=== PATIENT | male | born 1970 | race Caucasian/White ===

== ENCOUNTER 2016-12-18 14:46 | Emergency (ER) | payer BC ==
[2016-12-18 15:00] VITALS: O2SAT 96
--- NOTE | 2016-12-18 15:20 | ERPHSYRPT ---
- History of Present Illness Time Seen by Provider: 12/18/16 15:15 Source: patient Exam Limitations: no limitations Patient Subjective Stated Complaint: PT STATES HE HAD SURGERY TODAY ON RIGHT FOOT FOR A TENDON REPAIR AND WHEN HE GOT HOME AFTER SURGERY HE NOTICED BLEEDING COMING FROM SURGERY SITE. Triage Nursing Assessment: PT PINK, WARM, DRY. DRESSING SATURATED WITH BLOOD. BLOOD SEEPING FROM SUTURE SITE. PEDAL PULSE STRONG. SWELLING AND BRUISING NOTED. Physician History: 46 y/o male who had peroneal brevis repair done today comes to the ER with complaints of blood coming from the wound site. Pt has no pain and upon arrival , patient has no bleeding. Pt admits to not elevating the leg enough. Pt has no bleeding issues and is not on any blood thinners. Method of Injury: unknown Occurred: just prior to arrival Severity of Pain-Max: none Severity of Pain-Current: none Modifying Factors: Improves With: nothing Hx Tetanus, Diphtheria Vaccination/Date Given: Yes Hx Influenza Vaccination/Date Given: Yes Hx Pneumococcal Vaccination/Date Given: No Immunizations Up to Date: Yes - Review of Systems Constitutional: No Fever, No Chills Eyes: No Symptoms Ears, Nose, & Throat: No Symptoms Respiratory: No Cough, No Dyspnea Cardiac: No Chest Pain, No Edema, No Syncope Abdominal/Gastrointestinal: No Abdominal Pain, No Nausea, No Vomiting, No Diarrhea Genitourinary Symptoms: No Dysuria Musculoskeletal: No Arthralgias, No Back Pain, No Neck Pain, No Joint Redness Skin: No Rash Neurological: No Dizziness, No Focal Weakness, No Sensory Changes Psychological: No Symptoms Endocrine: No Symptoms All Other Systems: Reviewed and Negative - Past Medical History Pertinent Past Medical History: No - Past Surgical History Past Surgical History: Yes Other Surgical History: FOOT SURGERY - Social History Smoking Status: Current some day smoker Exposure to second hand smoke: No Drug Use: none Patient Lives Alone: Yes - Nursing Vital Signs Nursing Vital Signs: Initial Vital Signs Temperature 98.3 F 12/18/16 14:48 Pulse Rate 82 12/18/16 14:48 Respiratory Rate 18 12/18/16 14:48 Blood Pressure 128/67 12/18/16 14:48 O2 Sat by Pulse Oximetry 96 12/18/16 14:48 Pain Scale Pain Intensity 0 - Physical Exam General Appearance: alert Eyes, Ears, Nose, Throat Exam: moist mucous membranes Neck Exam: non-tender, supple Cardiovascular/Respiratory Exam: chest non-tender, normal breath sounds, regular rate/rhythm, no respiratory distress Gastrointestinal/Abdominal Exam: non-tender, guarding Back Exam: normal inspection, No vertebral tenderness Ankle Exam: right ankle: non-tender, normal inspection, normal range of motion, no evidence of injury Neuro/Tendon Exam: normal sensation, normal motor functions Mental Status Exam: alert, oriented x 3, cooperative Skin Exam: normal color, warm, dry SpO2 Interpretation: normal SpO2: 96 Oxygen Delivery: Room Air - Progress Progress: improved Progress Note: 12/18/16 15:18 Pt has no bleeding. Pt will be wrapped in dressings and will have an chuy wrap with surgical milner. I spoke to Dr Malone who the patient will F/U with. - Departure Time of Disposition: 15:19 Departure Disposition: Home Clinical Impression: S/P tendon repair Condition: Stable Critical Care Time: No Referrals: FUNMI LEONARD NP [Primary Care Provider] - Instructions: Tendon Repair Additional Instructions: Follow up with Dr. Malone in the next several days.
[2016-12-18 15:44] VITALS: BP 134/83; PULSE 95
== END 2016-12-18 15:44 | disposition home or self-care (01) ==
LOC: ED 14:46
DX: T81.31XA Disruption of external operation (surgical) wound, not elsewhere classified, initial encounter (principal)
CPT/HCPCS: 99283; 99284; L4386

== ENCOUNTER 2020-07-19 06:11 | Day surgery (SDC) | payer BC ==
[2020-07-19] MEDS ORDERED: Lactated Ringers 1,000 ML IV SCH (07:00)
[2020-07-19] MEDS ORDERED: Versed 2 MG/2 ML Injection ONE (07:32)
[2020-07-19] MEDS ORDERED: DIPRIVAN 200 MG/20 ML IV ONE (07:32)
[2020-07-19 08:48] VITALS: BP 133/66; PULSE 79; O2SAT 95
--- NOTE | 2020-07-19 10:28 | OP ---
SURGERY DATE/TIME: 07/19/2020 0728 PREOPERATIVE DIAGNOSIS: History of colon polyps. POSTOPERATIVE DIAGNOSIS: Normal colon. PROCEDURE: Colonoscopy. SURGEON: Dr. Wild. ANESTHESIA: MAC. Medications given by anesthesia department. HISTORY: The patient is a 50 year-old white male who reports he had polyps removed several years ago. The patient is felt the need to have endoscopic evaluation at age 50 especially in a patient with history of previous polyps. The patient was appraised of the risks of the procedure including the risk of perforation, phlebitis, untoward reaction to medication, bleeding and missed lesions. The patient verbalized his understanding and desired to have the procedure performed. DESCRIPTION OF PROCEDURE: The patient was given the medications by the anesthesia department. He had continuous pulse oximetry, ECG monitoring, intermittent blood pressure monitoring and tidal CO2 monitoring during the examination. He was placed in the left lateral decubitus position. A digital rectal examination was performed and revealed normal anal sphincter tone, no masses and normal prostate. The flexible Olympus pediatric colonoscope was used to intubate the rectum. A view of the colon was developed sequentially to the cecum. Upon insertion and withdrawal, including a retroflex view in the rectum, no mucosal lesions were encountered. The scope was removed from the patient who tolerated the procedure well and was sent back to OP recovery in good condition. The prep was noted to be good.
== END 2020-07-19 08:38 | disposition home or self-care (01) ==
LOC: SDC 06:11
PROVIDERS: ATTEND Family Medicine
DX: Z09 Encounter for follow-up examination after completed treatment for conditions other than malignant neoplasm (principal); Z86.010 Personal history of colon polyps
CPT/HCPCS: J2250; J2704

== ENCOUNTER 2022-08-15 22:57 | Emergency (ER) | payer BC ==
[2022-08-15] MEDS ORDERED: TORAdol 30 mg Injection IV ONE (23:04)
[2022-08-15] MEDS ORDERED: Zofran 4 MG/2 ML VIAL IV ONE (23:04)
[2022-08-15] MEDS ORDERED: MORPHINE SULFATE 2 MG INJ IV ONE (23:04)
[2022-08-15] MEDS ORDERED: Sodium Chloride 0.9% 1000 ML 1,000 ML IV STA (23:04)
--- NOTE | 2022-08-15 23:07 | ERPHSYRPT ---
- History of Present Illness Time Seen by Provider: 08/15/22 23:07 Historian: patient Exam Limitations: no limitations Physician History: Pt c/o flank pain, left. Severe, radiates to groin. Previous episode of nephrolithiasis, 9 episodes in the past, required intervention 4 times No fever. + N, no V. No dysuria. Denies hematuria. Timing/Duration: today Activities at Onset: rest Quality: burning, sharpness Abdominal Pain Onset Location: LLQ, flank Pain Radiation: LLQ, groin Severity of Pain-Max: severe Severity of Pain-Current: severe Modifying Factors: Improves With: nothing. Worsens With: movement, urinating Associated Symptoms: back, nausea, No chest pain, No fever/chills, No testicular pain, No vomiting Previous symptoms: same symptoms as today Allergies/Adverse Reactions: Iodinated Contrast Media [Iodinated Contrast- Oral and IV Dye] Allergy (Verified 08/15/22 23:17) silk Allergy (Verified 08/15/22 23:17) silk stitches - infection Home Medications: Famotidine 40 mg PO HS 12/18/16 [History] Pantoprazole Sodium [Protonix] 40 mg PO HS 12/18/16 [History] Simvastatin 10 mg [Zocor 10MG] 10 mg PO QPM 07/03/20 [History] Hx Tetanus, Diphtheria Vaccination/Date Given: Yes Hx Influenza Vaccination/Date Given: Yes Hx Pneumococcal Vaccination/Date Given: No - Review of Systems Constitutional: No Symptoms Eyes: No Symptoms Ears, Nose, & Throat: No Symptoms Respiratory: No Symptoms Cardiac: No Symptoms Abdominal/Gastrointestinal: Abdominal Pain, Nausea, No Vomiting, No Diarrhea Genitourinary Symptoms: No Dysuria, No Hematuria Musculoskeletal: No Symptoms Skin: No Symptoms Neurological: No Symptoms Psychological: No Symptoms Endocrine: No Symptoms Hematologic/Lymphatic: No Symptoms Immunological/Allergic: No Symptoms - Past Medical History Pertinent Past Medical History: Yes Neurological History: No Pertinent History ENT History: No Pertinent History Cardiac History: No Pertinent History Respiratory History: No Pertinent History Endocrine Medical History: No Pertinent History Musculoskeletal History: No Pertinent History GI Medical History: GERD History: Other Psycho-Social History: No Pertinent History Male Reproductive Disorders: No Pertinent History Other Medical History: kidney stones, hx of colon polyps - Past Surgical History Past Surgical History: Yes Neuro Surgical History: No Pertinent History Cardiac: No Pertinent History Respiratory: No Pertinent History Gastrointestinal: No Pertinent History Genitourinary: Other Musculoskeletal: Other Male Surgical History: No Pertinent History Other Surgical History: lithotripsy, tendon repair ankle, tendon release left wrist - Social History Smoking Status: Never smoker Exposure to second hand smoke: No Drug Use: none Patient Lives Alone: Yes - Nursing Vital Signs Nursing Vital Signs: Initial Vital Signs Temperature 97.2 F 08/15/22 23:00 Pulse Rate 62 08/15/22 23:00 Respiratory Rate 18 08/15/22 23:00 Blood Pressure 154/101 08/15/22 23:00 O2 Sat by Pulse Oximetry 98 08/15/22 23:00 Pain Scale Pain Intensity [] 10 Pain Intensity 8 - Physical Exam General Appearance: mild distress Eye Exam: eyes nml inspection Ears, Nose, Throat Exam: normal ENT inspection Neck Exam: normal inspection Respiratory Exam: normal breath sounds Cardiovascular Exam: regular rate/rhythm Gastrointestinal/Abdomen Exam: soft, normal bowel sounds, tenderness (LLQ), No guarding, No rebound Back Exam: CVA tenderness (left) Extremity Exam: normal inspection Neurologic Exam: alert, oriented x 3, cooperative, normal mood/affect Skin Exam: normal color SpO2 Interpretation: normal SpO2: 98 O2 Delivery: Room Air - Course Nursing assessment & vital signs reviewed: Yes - CT Exams Abdomen/Pelvis CT Interpretation: Tele-radiologist Report, Other (gallstones, 4.9m obstructing left ureteral calculus w/ left hydroureter and hydronephrosis) Ordered Tests: Active Orders 24 hr Category Date Time Status EKG-ER Only STAT Care 08/15/22 23:04 Active IV Insertion STAT Care 08/15/22 23:04 Active ABDOMEN AND PELVIS W/0 CONTRAS [CT] Stat Exams 08/15/22 23:05 Taken CBC W DIFF Stat Lab 08/15/22 23:00 Completed CMP Stat Lab 08/15/22 23:00 Completed LIPASE Stat Lab 08/15/22 23:00 Completed Lactic Acid Stat Lab 08/15/22 23:04 Ordered TROPONIN Q4H Lab 08/15/22 23:00 Completed TROPONIN Q4H Lab 08/16/22 03:15 Ordered TROPONIN Q4H Lab 08/16/22 07:15 Ordered UA W/RFX UR CULTURE Stat Lab 08/15/22 23:10 Completed Medication Summary Generic Name Dose Route Start Last Admin Trade Name Rebecca PRN Reason Stop Dose Admin Ketorolac Tromethamine 10 mg 08/16/22 00:30 08/16/22 00:33 Ketorolac Tromethamine 10 Mg Tablet PO 08/21/22 00:29 10 mg Q4H OLYA Administration Ketorolac Tromethamine 10 mg 08/16/22 00:45 Ketorolac Tromethamine 10 Mg Tablet PO 08/21/22 00:44 Q4H OLYA Tamsulosin HCl 0.4 mg 08/16/22 10:00 08/15/22 23:23 Tamsulosin Hcl 0.4 Mg Cap PO 09/15/22 09:59 0.4 mg DAILY OLYA Administration Discontinued Medications Generic Name Dose Route Start Last Admin Trade Name Rebecca PRN Reason Stop Dose Admin Sodium Chloride 1,000 mls @ 999 mls/hr 08/15/22 23:04 08/15/22 23:20 Sodium Chloride 0.9% 1000 Ml IV 08/16/22 00:04 999 mls/hr .Q1H1M STA Administration Sodium Chloride Confirm 08/15/22 23:11 Sodium Chloride 0.9% 1000 Ml Administered 08/15/22 23:12 Dose 1,000 mls @ ud .ROUTE .STK-MED ONE Ketorolac Tromethamine 30 mg 08/15/22 23:04 08/15/22 23:20 Ketorolac Tromethamine 30 Mg/Ml Inj IV 08/15/22 23:05 30 mg STAT ONE Administration Ketorolac Tromethamine Confirm 08/15/22 23:11 Ketorolac Tromethamine 30 Mg/Ml Inj Administered 08/15/22 23:12 Dose 30 mg .ROUTE .STK-MED ONE Morphine Sulfate 2 mg 08/15/22 23:04 08/16/22 00:32 Morphine Sulfate 2 Mg/Ml Inj IV 08/15/22 23:05 2 mg STAT ONE Administration Morphine Sulfate Confirm 08/16/22 00:31 Morphine Sulfate 2 Mg/Ml Inj Administered 08/16/22 00:32 Dose 2 mg .ROUTE .STK-MED ONE Ondansetron HCl 4 mg 08/15/22 23:04 08/15/22 23:20 Ondansetron Hcl 4 Mg/2 Ml Vial IV 08/15/22 23:05 4 mg STAT ONE Administration Ondansetron HCl Confirm 08/15/22 23:11 Ondansetron Hcl 4 Mg/2 Ml Vial Administered 08/15/22 23:12 Dose 4 mg .ROUTE .STK-MED ONE Lab/Rad Data: Laboratory Result Diagrams 08/15/22 23:00 08/15/22 23:00 Laboratory Results 08/15/22 08/15/22 08/15/22 Range/Units 23:10 23:00 23:00 WBC (4.0-10.5) x10^3/uL RBC (4.1-5.6) x10^6/uL Hgb (12.5-18.0) g/dL Hct (42-50) % MCV (78-100) fL MCH (26-32) pg MCHC (32-36) g/dL RDW (11.5-14.0) % Plt Count (150-450) x10^3/uL MPV (7.5-11.0) fL Gran % (36.0-66.0) % Immature Gran % (Auto) (0.00-0.4) % Nucleat RBC Rel Count (0.00-0.1) % Eos # (Auto) (0-0.5) x10^3/uL Immature Gran # (Auto) (0.00-0.03) x10^3u/L Absolute Lymphs (auto) (1.0-4.6) x10^3/uL Absolute Monos (auto) (0.0-1.3) x10^3/uL Absolute Nucleated RBC (0.00-0.01) x10^3u/L Lymphocytes % (24.0-44.0) % Monocytes % (0.0-12.0) % Eosinophils % (0.00-5.0) % Basophils % (0.0-0.4) % Absolute Granulocytes (1.4-6.9) x10^3/uL Basophils # (0-0.4) x10^3/uL Sodium 141 (137-145) mmol/L Potassium 3.9 (3.5-5.1) mmol/L Chloride 103 (98-107) mmol/L Carbon Dioxide 26 (22-30) mmol/L Anion Gap 15.3 H (5-15) MEQ/L BUN 15 (9-20) mg/dL Creatinine 0.95 (0.66-1.25) mg/dL Estimated GFR > 60.0 ML/MIN Glucose 123 H (74-106) mg/dL Calcium 9.0 (8.4-10.2) mg/dL Total Bilirubin 0.60 (0.2-1.3) mg/dL AST 29 (17-59) U/L ALT 38 (0-50) U/L Alkaline Phosphatase 95 (38-126) U/L Troponin I < 0.012 (0.000-0.034) ng/mL Serum Total Protein 7.3 (6.3-8.2) g/dL Albumin 4.4 (3.5-5.0) g/dL Lipase 76 (23-300) U/L Urine Color Yellow (Yellow) Urine Appearance Clear (Clear) Urine pH 5.5 (4.6-8.0) Ur Specific [place] 1.025 (1.005-1.030) Urine Protein Negative (Negative) Urine Glucose (UA) Negative (Negative) mg/dL Urine Ketones Negative (Negative) Urine Blood Large A (Negative) Urine Nitrite Negative (Negative) Urine Bilirubin Negative (Negative) Urine Urobilinogen 1.0 A (0.2) mg/dL Ur Leukocyte Esterase Negative (Negative) U Hyaline Cast (Auto) NONE SEEN (0-2) /LPF Urine Microscopic RBC >100 A (0-5) /HPF Urine Microscopic WBC 0-2 (0-5) /HPF Ur Epithelial Cells None Seen (None Seen) /HPF Urine Bacteria None Seen (None Seen) /HPF Urine Culture Reflexed NO (NO) 08/15/22 Range/Units 23:00 WBC 11.1 H (4.0-10.5) x10^3/uL RBC 5.52 (4.1-5.6) x10^6/uL Hgb 16.3 (12.5-18.0) g/dL Hct 49.8 (42-50) % MCV 90.2 (78-100) fL MCH 29.5 (26-32) pg MCHC 32.7 (32-36) g/dL RDW 12.9 (11.5-14.0) % Plt Count 392 (150-450) x10^3/uL MPV 10.1 (7.5-11.0) fL Gran % 57.1 (36.0-66.0) % Immature Gran % (Auto) 0.4 (0.00-0.4) % Nucleat RBC Rel Count 0.0 (0.00-0.1) % Eos # (Auto) 0.25 (0-0.5) x10^3/uL Immature Gran # (Auto) 0.04 H (0.00-0.03) x10^3u/L Absolute Lymphs (auto) 3.18 (1.0-4.6) x10^3/uL Absolute Monos (auto) 1.16 (0.0-1.3) x10^3/uL Absolute Nucleated RBC 0.00 (0.00-0.01) x10^3u/L Lymphocytes % 28.8 (24.0-44.0) % Monocytes % 10.5 (0.0-12.0) % Eosinophils % 2.3 (0.00-5.0) % Basophils % 0.9 (0.0-0.4) % Absolute Granulocytes 6.33 (1.4-6.9) x10^3/uL Basophils # 0.10 (0-0.4) x10^3/uL Sodium (137-145) mmol/L Potassium (3.5-5.1) mmol/L Chloride (98-107) mmol/L Carbon Dioxide (22-30) mmol/L Anion Gap (5-15) MEQ/L BUN (9-20) mg/dL Creatinine (0.66-1.25) mg/dL Estimated GFR ML/MIN Glucose (74-106) mg/dL Calcium (8.4-10.2) mg/dL Total Bilirubin (0.2-1.3) mg/dL AST (17-59) U/L ALT (0-50) U/L Alkaline Phosphatase (38-126) U/L Troponin I (0.000-0.034) ng/mL Serum Total Protein (6.3-8.2) g/dL Albumin (3.5-5.0) g/dL Lipase (23-300) U/L Urine Color (Yellow) Urine Appearance (Clear) Urine pH (4.6-8.0) Ur Specific [place] (1.005-1.030) Urine Protein (Negative) Urine Glucose (UA) (Negative) mg/dL Urine Ketones (Negative) Urine Blood (Negative) Urine Nitrite (Negative) Urine Bilirubin (Negative) Urine Urobilinogen (0.2) mg/dL Ur Leukocyte Esterase (Negative) U Hyaline Cast (Auto) (0-2) /LPF Urine Microscopic RBC (0-5) /HPF Urine Microscopic WBC (0-5) /HPF Ur Epithelial Cells (None Seen) /HPF Urine Bacteria (None Seen) /HPF Urine Culture Reflexed (NO) - Progress Progress: pain not gone completely Progress Note: 08/16/22 00:26 Patient has <5mm obstructing left ureteral stone that should pass w/o intervention. Patient will be given Toradol, [place], Flomax and Zofran at d/c. Increase fluid intake and f/u w/ urologist on Wednesday. Counseled pt/family regarding: lab results, diagnosis, need for follow-up, rad results Medical Desision Making - Diagnostic Testing Diagnostic test were ordered, analyzed, and reviewed by me: Yes Radiological Interpretation: Reviewed by me, Teleradiologist Report - Risk of complications The pt has a mod risk of morbidity or mortality based on: Need for prescription drug management - Departure Departure Disposition: Home Clinical Impression: Ureteral stone with hydronephrosis, Nausea Condition: Good Critical Care Time: No Referrals: FUNMI LEONARD NP [Primary Care Provider] - Follow up/PCP as directed JAIRO DURAN DO [NON-STAFF PHY W/O PRIVILEGES] - Follow up/PCP as directed Instructions: Kidney Stones (DC) Prescriptions: Tamsulosin HCl 0.4 mg [Flomax 0.4 MG] 0.4 mg PO DAILY 10 Days #10 cap Hydrocodone/Acetaminophen [Hydrocodone-Acetamin 7.5-325] 1 each PO Q6H PRN 5 Days #20 tablet MDD 4 tab PRN Reason: Pain Ketorolac Trometh 10 mg Tab [TORAdol 10 MG TABLET] 10 mg PO Q4H 5 Days #30 tablet ondansetron HCL [Zofran] 8 mg PO Q8H PRN 5 Days #15 tablet PRN Reason: Nausea
[2022-08-15] MEDS ORDERED: Sodium Chloride 0.9% 1000 ML 1,000 ML ONE (23:11)
[2022-08-15] MEDS ORDERED: TORAdol 30 mg Injection ONE (23:11)
[2022-08-15] MEDS ORDERED: Zofran 4 MG/2 ML VIAL ONE (23:11)
[2022-08-15] MEDS ORDERED: Flomax 0.4 MG ONE (23:23)
[2022-08-15 23:37] LABS: Absolute Neutrophil Ct (ANC) 6.33 x10^3/uL (1.4-6.9); BASOPHIL % 0.9 % (0.0-0.4); Eosinophil % 2.3 % (0.00-5.0); Eosinophil (Absolute #) 0.25 x10^3/uL (0-0.5); Hematocrit 49.8 % (42-50); Hemoglobin 16.3 g/dL (12.5-18.0); IMMATURE GRAN # 0.04 x10^3u/L (0.00-0.03); IMMATURE GRAN % 0.4 % (0.00-0.4); Lymphocyte (Absolute #) 3.18 x10^3/uL (1.0-4.6); Lymphocytes % 28.8 % (24.0-44.0); Mean Cell Volume 90.2 fL (78-100); Mean Corpuscular Hemoglobin 29.5 pg (26-32); Mean Corpuscular Hgb Concent. 32.7 g/dL (32-36); Mean Platelet Volume 10.1 fL (7.5-11.0); Monocyte (Absolute #) 1.16 x10^3/uL (0.0-1.3); Monocytes % 10.5 % (0.0-12.0); Neutrophil % 57.1 % (36.0-66.0); Platelet Count 392 x10^3/uL (150-450); Red Blood Count 5.52 x10^6/uL (4.1-5.6); Red Cell Distribution Width 12.9 % (11.5-14.0); White Blood Count 11.1 x10^3/uL (4.0-10.5)
[2022-08-15 23:43] LABS: Appearance Clear (Clear); Bacteria None Seen /HPF (None Seen); Bilirubin Negative (Negative); Blood Large (Negative); Epithelial Cells None Seen /HPF (None Seen); Glucose, Urine Negative (Negative); Hyaline Casts NONE SEEN /LPF (0-2); Ketones Negative (Negative); Leukocyte Esterase Negative (Negative); Nitrite Negative (Negative); Ph 5.5 (4.6-8.0); Protein,Urine Dip Negative (Negative); RBC >100 /HPF (0-5); Specific Gravity 1.025 (1.005-1.030); WBC 0-2 /HPF (0-5)
[2022-08-15 23:59] LABS: ADD URINE CULTURE? NO (NO)
[2022-08-16 00:04] LABS: ALBUMIN 4.4 g/dL (3.5-5.0); ALKALINE PHOSPHATASE 95 U/L (38-126); ANION GAP 15.3 MEQ/L (5-15); BLOOD UREA NITROGEN 15 mg/dL (9-20); CHLORIDE 103 mmol/L (98-107); Carbon Dioxide 26 mmol/L (22-30); Creatinine 1 0.95 mg/dL (0.66-1.25); EST GLOMERULAR FILTRATION RATE > 60.0 ML/MIN; Glucose 123 mg/dL (74-106); LIPASE 76 U/L (23-300); Potassium 3.9 mmol/L (3.5-5.1); SGOT/AST 29 U/L (17-59); SGPT/ALT 38 U/L (0-50); SODIUM 141 mmol/L (137-145); Total Protein 7.3 g/dL (6.3-8.2)
[2022-08-16 00:23] VITALS: PULSE 70
[2022-08-16] MEDS ORDERED: TORAdol 10 MG TABLET ONE (00:27)
[2022-08-16] MEDS: TORAdol 10 MG TABLET PO SCH ×2 (00:30→00:33)
[2022-08-16] MEDS ORDERED: MORPHINE SULFATE 2 MG INJ ONE (00:31)
[2022-08-16] MEDS ORDERED: TORAdol 10 MG TABLET PO SCH (00:45)
[2022-08-16 01:05] VITALS: BP 150/74; O2SAT 96
--- NOTE | 2022-08-16 08:22 | XRAY ---
Indication: Left abdomen pain. History kidney stone. Multiple contiguous axial images obtained through the abdomen and pelvis without contrast using renal stone protocol. Comparison: None Lung bases clear. Heart not enlarged. 4-5 mm left mid ureter calculus, approximately L4-L5 level. Proximal left ureter is slightly prominent along with mild hydronephrosis consistent with partial obstructive uropathy. Additional 3 left renal and 2 right punctate calculi. Stomach is distended with food/fluid. Gallbladder contracted with two 3 mm stones in the neck of the gallbladder. Remaining liver, gallbladder, pancreas, spleen, adrenal glands, kidneys, ureters, and bladder are unremarkable for noncontrast exam. Minimal aortoiliac calcifications without AAA. Osseous structures intact. No ventral or inguinal hernias. Impression: 1. 4-5 mm left mid ureter calculus producing partial obstruction. Additional bilateral renal micro-calculi. 2. Tiny gallstones and minimal arteriosclerotic disease. Comment: Preliminary interpretation made by [facility]. No critical discrepancy.
[2022-08-16] MEDS ORDERED: Flomax 0.4 MG PO SCH (10:00)
== END 2022-08-16 01:05 | disposition home or self-care (01) ==
LOC: ED 22:57
DX: N13.2 Hydronephrosis with renal and ureteral calculous obstruction (principal); R11.0 Nausea; Z87.442 Personal history of urinary calculi; R10.9 Unspecified abdominal pain; Z79.891 Long term (current) use of opiate analgesic; Z79.899 Other long term (current) drug therapy
CPT/HCPCS: 36000; 36415; 74176; 80053; 81001; 83605; 83690; 84484; 85025; 93005; 96360; 96374; 96375; 99284; J1885; J2270; J2405; A9270-GY

== ENCOUNTER 2022-09-21 08:01 | Day surgery (SDC) | payer BC ==
[~2022-09-21 08:01] MED LIST: Lactated Ringers 1,000 ML IV ONE; Sensorcaine 0.25% 10 ML ONE
--- NOTE | 2022-09-21 08:20 | HP ---
DATE OF SURGERY: 09/21/2022 HISTORY OF PRESENT ILLNESS: The patient is a 52-year-old appeared to have some bloating, change in bowel movements, worse depending on what he eats. CT scan had left kidney stone in the distant past. He did have gallstones. He has some right-sided symptoms at this time. PAST MEDICAL HISTORY: Hyperlipidemia. History of ulcers in the past. History of nephrolithiasis. PAST SURGICAL HISTORY: Colonoscopy. Carpal tunnel. Ankle surgery. Tendon release wrist. Upper endoscopy in the past. MEDICATIONS: Simvastatin, famotidine, pantoprazole. ALLERGIES: NKDA. IV DYE. SILK SUTURE. FAMILY HISTORY: Myocardial infarction. SOCIAL HISTORY: No smoking. He does drink some alcohol. REVIEW OF SYSTEMS: Fourteen systems reviewed. No chest pain or palpitations. Other systems negative or noncontributory as above and per preadmission questionnaire. PHYSICAL EXAMINATION: Height 5'10". BMI 30. GENERAL: No acute distress. HEENT: Sclerae nonicteric. EOMI. Oropharynx mucous membranes moist. NECK: No JVD. CHEST: Equal excursion, nonlabored breathing. CVS: Regular rate and rhythm. ABDOMEN: Soft, mild distension. No rebound. No guarding. No peritoneal signs. EXTREMITIES: No significant edema. NEURO: Alert, oriented, moving extremities symmetrically. PSYCH: Appropriate mood and affect. SKIN: Dry. IMPRESSION: Acute exacerbation chronic cholecystitis/cholelithiasis. CT scan personally reviewed. I feel the patient would benefit from cholecystectomy. He was shown the risk sheet, explained the procedure in detail including but not limited to bleeding or infection, risk of trocar injury or hernia, risk of bile leak, bile duct injury, retained stone or sludge possibly requiring further procedure either open or ERCP, general risk of anesthesia, deep venous thrombosis, pulmonary embolism, pneumonia, perioperative risk of aches, pains, bloating, constipation and/or loose stools possibly even chronic in nature. He understands and agrees to the plan. He also understands if he fails to improve his symptoms that he may need further work up and/or testing, endoscopy, other studies or procedures. He understands and agrees to the planned procedure, will proceed with laparoscopic cholecystectomy with possible open as an outpatient.
[2022-09-21] MEDS ORDERED: Lactated Ringers 1,000 ML IV SCH (08:30)
[2022-09-21] MEDS ORDERED: Lactated Ringers 1,000 ML IV ONE (08:52)
[2022-09-21] MEDS ORDERED: MEFOXIN 2 GM PREMIX** 2 GM/50 ML ML IV ONE (08:52)
[2022-09-21] MEDS ORDERED: MEFOXIN 2 GM PREMIX** 2 GM/50 ML ML IV SCH (09:00)
[2022-09-21] MEDS ORDERED: Pepcid 20 MG VIAL IV ONE ×2 (09:51→09:58)
[2022-09-21] MEDS ORDERED: Reglan 10 MG/2 ML ONE (09:51)
[2022-09-21] MEDS ORDERED: Reglan 10 MG/2 ML IV ONE (09:58)
[2022-09-21] MEDS ORDERED: Versed 2 MG/2 ML Injection ONE (10:32)
[2022-09-21] MEDS ORDERED: DIPRIVAN 200 MG/20 ML IV ONE (10:32)
[2022-09-21] MEDS ORDERED: SUBLIMAZE 250 MCG/5 ML ONE (10:33)
[2022-09-21] MEDS ORDERED: Xylocaine-Mpf 2% 5 Ml Vial ONE (10:42)
[2022-09-21] MEDS ORDERED: BRIDION 200MG/2ML IV ONE (11:15)
[2022-09-21] MEDS ORDERED: TORAdol 30 mg Injection ONE (11:15)
[2022-09-21] MEDS ORDERED: SUBLIMAZE 100 MCG/2 ML ONE (11:48)
[2022-09-21 12:59] VITALS: O2SAT 99
[2022-09-21 13:06] VITALS: BP 152/88; PULSE 82
--- NOTE | 2022-09-21 13:24 | OP ---
SURGERY DATE/TIME: 09/21/2022 1039 PREOPERATIVE DIAGNOSIS: Acute exacerbation of chronic cholecystitis, symptomatic cholelithiasis. POSTOPERATIVE DIAGNOSIS: Acute exacerbation of chronic cholecystitis, symptomatic cholelithiasis. PROCEDURE: Laparoscopic cholecystectomy. SURGEON: Dr. Erlin Mayen. ANESTHESIA: General. ESTIMATED BLOOD LOSS: Minimal. INDICATIONS: As noted above. Risks and benefits explained in detail but not limited to and consent obtained. DESCRIPTION OF PROCEDURE AND FINDINGS: The patient was taken to the operating room. General anesthesia induced. Abdomen prepped and draped in usual sterile fashion. After official time out and no disagreement with planned procedure, a transverse incision made in the supraumbilical area. Fascia grasped, pulled upward. Veress needle inserted and tested with saline. Pneumoperitoneum accomplished insufflating opening pressure of 0-15. A 5 mm bladeless port and camera were inserted without difficulty followed by two - 5 mm right upper quadrant ports and 11 mm epigastric port. The gallbladder had chronic inflammatory reaction. Dissected posterior, lateral to anterior fashion slowly and carefully the cystic duct and infundibular junction carefully well skeletonized until the critical view was obtained both anteriorly and posteriorly. Once this is accomplished, the cystic duct and cystic artery were clipped x3 and divided in the usual fashion. The gallbladder is slowly and carefully dissected free from its dense attachments to the liver bed. It was quite vascular and required additional oozing side branches off the cystic artery and cystic vein directly on the gallbladder wall as necessary. The gallbladder is slowly and carefully dissected free staying directly on the gallbladder wall. Just prior to releasing from final attachments to the anterior edge of the liver, the liver bed re-inspected. Clips noted in place in the cystic duct and cystic artery stumps. No signs of any active bleeding or bile leakage. It was felt there is no benefit of drain placement. The gallbladder was released from final attachments to the liver and placed in the provided sac pulled up and out the epigastric wound just slightly spreading with a clamp allowing the gallbladder bag to be pulled free and passed off. Copious amount of irrigation accomplished lateral to the liver and subhepatic space irrigating clear. Good hemostasis noted. Clips noted to be in place cystic duct and cystic artery stumps. No signs of any active bleeding or bile leakage. It was felt there was no benefit in drain placement. At this point the 10/11 port closed with puncture closure device with #1 Vicryl. Pneumoperitoneum decompressed. The wound irrigated out. Skin incision closed with 4-0 Vicryl. 0.25% Marcaine local injected along the skin incision fascial defect at the beginning of the procedure. There were no immediate complications. Findings discussed with his family out in the waiting area.
== END 2022-09-21 13:05 | disposition home or self-care (01) ==
LOC: SDC 08:01
PROVIDERS: ATTEND Surgery
DX: K80.10 Calculus of gallbladder with chronic cholecystitis without obstruction (principal)
CPT/HCPCS: J0694; J1885; J2250; J2704; J3010

== ENCOUNTER 2024-04-24 07:25 | Emergency (ER) | payer BC ==
[2024-04-24 07:40] VITALS: TEMP 97
[2024-04-24] MEDS ORDERED: TORAdol 30 mg Injection ONE ×2 (07:40→09:15)
[2024-04-24] MEDS ORDERED: Zofran 4 MG/2 ML VIAL ONE (07:40)
[2024-04-24] MEDS: ZOFRAN ODT 4 MG PO ONE (07:45)
[2024-04-24] MEDS: Zofran 4 MG/2 ML VIAL IV ONE (07:46)
[2024-04-24] MEDS: TORAdol 30 mg Injection IV ONE ×2 (07:46→09:17)
--- NOTE | 2024-04-24 07:50 | ERPHSYRPT ---
- History of Present Illness Time Seen by Provider: 04/24/24 07:40 Historian: patient Patient Subjective Stated Complaint: C/O left abdominal/flank pain that woke patient up at 0600 today Triage Nursing Assessment: Patient ambulated back to ER. He is alert and oriented. S/S of pain present; restless, grimacing. Skin tone normal. ORTIZ WNL. Urine specimen obtained; visible blood noted. Timing/Duration: today Activities at Onset: none Quality: aching Pain Radiation: no radiation Allergies/Adverse Reactions: Iodinated Contrast Media [Iodinated Contrast- Oral and IV Dye] Allergy (Verified 04/24/24 07:34) silk Allergy (Verified 04/24/24 07:34) silk stitches - infection Home Medications: Pantoprazole Sodium [Protonix] 40 mg PO HS 12/18/16 [History] Simvastatin 10 mg [Zocor 10MG] 10 mg PO DAILY 04/24/24 [History] Testosterone Cypionate 0.5 ml IM Q14D 04/24/24 [History] Hx Tetanus, Diphtheria Vaccination/Date Given: Yes Hx Influenza Vaccination/Date Given: No Hx Pneumococcal Vaccination/Date Given: No Immunizations Up to Date: Yes Travel Risk - International Travel Have you traveled outside of the country in past 3 weeks: No - Emerging Infectious Disease Are you exhibiting symptoms associated with any current EIDs: Yes Symptoms: Abdominal Pain - Review of Systems Eyes: No Symptoms Ears, Nose, & Throat: No Symptoms, Throat Swelling Cardiac: No Symptoms Abdominal/Gastrointestinal: Abdominal Pain Genitourinary Symptoms: Dysuria, Frequency, Flank Pain Musculoskeletal: No Symptoms - Past Medical History Pertinent Past Medical History: Yes Neurological History: No Pertinent History ENT History: No Pertinent History Cardiac History: High Cholesterol Respiratory History: No Pertinent History Endocrine Medical History: No Pertinent History Musculoskeletal History: No Pertinent History GI Medical History: GERD History: Other Psycho-Social History: No Pertinent History Male Reproductive Disorders: No Pertinent History Other Medical History: kidney stones, hx of colon polyps - Past Surgical History Past Surgical History: Yes Neuro Surgical History: No Pertinent History Cardiac: No Pertinent History Respiratory: No Pertinent History Gastrointestinal: No Pertinent History Genitourinary: Other Musculoskeletal: Other Male Surgical History: No Pertinent History Other Surgical History: tendon repair ankle, tendon release left wrist, kidney s tone removal; not lithotripsy - Social History Smoking Status: Never smoker Exposure to second hand smoke: No Drug Use: none Patient Lives Alone: Yes - Social Determinants of Health Will the patient participate in the screening: Declined to provide - Nursing Vital Signs Nursing Vital Signs: Initial Vital Signs O2 Sat by Pulse Oximetry 94 L 04/24/24 07:34 Pain Scale Pain Intensity 4 - Physical Exam General Appearance: no apparent distress Eye Exam: PERRL/EOMI Ears, Nose, Throat Exam: normal ENT inspection Respiratory Exam: normal breath sounds Cardiovascular Exam: regular rate/rhythm Gastrointestinal/Abdomen Exam: tenderness (patient is tender in the left lower quadrant ) SpO2: 98 Ordered Tests: Active Orders 24 hr Category Date Time Status IV Insertion STAT Care 04/24/24 07:41 Completed ABDOMEN AND PELVIS W/0 CONTRAS [CT] Stat Exams 04/24/24 07:39 Completed CBC W DIFF Stat Lab 04/24/24 07:45 Completed CMP Stat Lab 04/24/24 07:45 Completed CULTURE,URINE Stat Lab 04/24/24 07:40 Received UA W/RFX UR CULTURE Stat Lab 04/24/24 07:40 Completed Medication Summary Discontinued Medications Generic Name Dose Route Start Last Admin Trade Name Freq PRN Reason Stop Dose Admin Hydromorphone HCl 1 mg 04/24/24 11:54 04/24/24 11:58 Hydromorphone 1 Mg/1ml Inj IV 04/24/24 11:55 1 mg STAT ONE Administration Hydromorphone HCl Confirm 04/24/24 11:57 Hydromorphone 1 Mg/1ml Inj Administered 04/24/24 11:58 Dose 1 mg .ROUTE .STK-MED ONE Sodium Chloride 1,000 mls @ 999 mls/hr 04/24/24 07:41 04/24/24 09:18 Sodium Chloride 0.9% 1000 Ml IV 04/24/24 08:41 Infused .Q1H1M STA Infusion Sodium Chloride Confirm 04/24/24 08:13 Sodium Chloride 0.9% 1000 Ml Administered 04/24/24 08:14 Dose 1,000 mls @ ud .ROUTE .STK-MED ONE Ketorolac Tromethamine Confirm 04/24/24 07:40 Ketorolac Tromethamine 30 Mg/Ml Inj Administered 04/24/24 07:41 Dose 30 mg .ROUTE .STK-MED ONE Ketorolac Tromethamine 30 mg 04/24/24 07:41 04/24/24 07:46 Ketorolac Tromethamine 30 Mg/Ml Inj IV 04/24/24 07:42 30 mg STAT ONE Administration Ketorolac Tromethamine 30 mg 04/24/24 09:12 04/24/24 09:17 Ketorolac Tromethamine 30 Mg/Ml Inj IV 04/24/24 09:13 30 mg STAT ONE Administration Ketorolac Tromethamine Confirm 04/24/24 09:15 Ketorolac Tromethamine 30 Mg/Ml Inj Administered 04/24/24 09:16 Dose 30 mg .ROUTE .STK-MED ONE Ondansetron HCl Confirm 04/24/24 07:40 Ondansetron Hcl 4 Mg/2 Ml Vial Administered 04/24/24 07:41 Dose 4 mg .ROUTE .STK-MED ONE Ondansetron HCl 4 mg 04/24/24 07:41 04/24/24 07:47 Zofran 4 Mg/Udtablet Orally Disintegrating PO 04/24/24 07:42 4 mg STAT ONE Administration Ondansetron HCl 4 mg 04/24/24 07:45 04/24/24 07:46 Ondansetron Hcl 4 Mg/2 Ml Vial IV 04/24/24 07:46 4 mg STAT ONE Administration Ondansetron HCl 4 mg 04/24/24 11:54 Zofran 4 Mg/Udtablet Orally Disintegrating PO 05/24/24 11:53 Q4H PRN PRN NAUSEA/VOMITING Lab/Rad Data: Laboratory Result Diagrams 04/24/24 07:45 04/24/24 07:45 Laboratory Results 04/24/24 04/24/24 04/24/24 Range/Units 07:45 07:45 07:40 WBC 9.7 H (4.23-9.07) x10^3/uL RBC 6.50 H (4.63-6.08) x10^6/uL Hgb 19.3 H (13.7-17.5) g/dL Hct 57.1 H (40.1-51.0) % MCV 87.8 (79.0-92.2) fL MCH 29.7 (25.7-32.2) pg MCHC 33.8 (32.3-36.5) g/dL RDW 13.0 (11.6-14.4) % Plt Count 347 H (163-337) x10^3/uL MPV 10.0 (9.4-12.4) fL Gran % 62.7 (34.0-67.9) % Immature Gran % (Auto) 0.5 H (0.001-0.429) % Nucleat RBC Rel Count 0.0 (0.00-0.2) % Eos # (Auto) 0.21 (0.04-0.54) x10^3/uL Immature Gran # (Auto) 0.05 H (0.001-0.031) x10^3u/L Absolute Lymphs (auto) 2.20 (1.32-3.57) x10^3/uL Absolute Monos (auto) 1.07 H (0.30-0.82) x10^3/uL Absolute Nucleated RBC 0.00 (0.00-0.012) x10^3u/L Lymphocytes % 22.6 (21.8-53.1) % Monocytes % 11.0 (5.3-12.2) % Eosinophils % 2.2 (0.8-7.0) % Basophils % 1.0 (0.2-1.2) % Absolute Granulocytes 6.10 H (1.78-5.38) x10^3/uL Basophils # 0.10 H (0.01-0.08) x10^3/uL Sodium 138 (135-145) mmol/L Potassium 4.1 (3.5-5.1) mmol/L Chloride 101 (98-107) mmol/L Carbon Dioxide 28 (22-30) mmol/L Anion Gap 12.5 (5-15) MEQ/L BUN 13 (9-20) mg/dL Creatinine 1.16 (0.66-1.25) mg/dL Estimated GFR 75.3 ML/MIN Glucose 117 H (74-106) mg/dL Calcium 9.4 (8.4-10.2) mg/dL Total Bilirubin 1.00 (0.2-1.3) mg/dL AST 44 (17-59) U/L ALT 56 H (0-50) U/L Alkaline Phosphatase 76 (38-126) U/L Serum Total Protein 7.5 (6.3-8.2) g/dL Albumin 4.6 (3.5-5.0) g/dL Urine Color Pender A (Yellow) Urine Appearance Turbid A (Clear) Urine pH 5.0 (4.6-8.0) Ur Specific [place] 1.020 (1.005-1.030) Urine Protein 100 A (Negative) Urine Glucose (UA) Negative (Negative) mg/dL Urine Ketones Negative (Negative) Urine Blood Large A (Negative) Urine Nitrite Negative (Negative) Urine Bilirubin Negative (Negative) Urine Urobilinogen 1.0 A (0.2) mg/dL Ur Leukocyte Esterase Small A (Negative) U Hyaline Cast (Auto) NONE SEEN (0-2) /LPF Urine Microscopic RBC >100 A (0-5) /HPF Urine Microscopic WBC 6-10 A (0-5) /HPF Ur Epithelial Cells None Seen (None Seen) /HPF Urine Bacteria None Seen (None Seen) /HPF Urine Culture Reflexed YES (NO) - Progress Progress Note: patient was seen and evaluated fof left flank pain - labs and ct was ordered- pa tient was given toradol and fluids 04/24/24 07:50 IMPRESSION: 1. Obstructing calculus measuring 7.4x 6.2 mm noted in left mid ureter causing proximal hydroureter and hydronephrosis associated inflammatory changes also Appreciated, not seen previously. 2. Redemonstration of non-obstructing right renal calculus, Stable. 3. Interval progression was noted in the number and size of left renal Non-obstructing calculi. 4. Urinary bladder appears diffusely thick-walled likely secondary to suboptimal status still clinically warranted sonographic correlation would be helpful. 5. Status post cholecystectomy. No significant abnormality detected in the surgical bed. 6. The rest of the findings are unchanged in comparison to the previous scan. [facility] ER was called at [phone] at 7:38 AM [employer] on 04/24/2024, and Saúl (MONIKA) was informed regarding the presence of significant medical findings in the report. patient was updated with the results and the need for urology consultation 04/24/24 09:10 Case was discussed with the urologist in [facility], He will see the patient in consultation and speak to the hospitalist about transferring the patient to their hospital 04/24/24 11:51 the patient appointment coordinator and hospitalist informed the staff of the acceptance at the facility in [place] and the patient wishes to go by private vehicle 04/24/24 12:44 - Departure Departure Disposition: Transfer Clinical Impression: Acute abdominal pain, Kidney stones Condition: Stable Critical Care Time: No Referrals: YONG LOWE [Primary Care Provider] - Follow up/PCP as directed
[2024-04-24 07:56] LABS: Eosinophil % 2.2 % (0.8-7.0); Eosinophil (Absolute #) 0.21 x10^3/uL (0.04-0.54); Hematocrit 57.1 % (40.1-51.0); Hemoglobin 19.3 g/dL (13.7-17.5); IMMATURE GRAN # 0.05 x10^3u/L (0.001-0.031); IMMATURE GRAN % 0.5 % (0.001-0.429); Lymphocytes % 22.6 % (21.8-53.1); Mean Cell Volume 87.8 fL (79.0-92.2); Mean Corpuscular Hemoglobin 29.7 pg (25.7-32.2); Mean Corpuscular Hgb Concent. 33.8 g/dL (32.3-36.5); Monocyte (Absolute #) 1.07 x10^3/uL (0.30-0.82); Neutrophil % 62.7 % (34.0-67.9); Platelet Count 347 x10^3/uL (163-337); White Blood Count 9.7 x10^3/uL (4.23-9.07)
[2024-04-24 08:02] LABS: Appearance Turbid (Clear); Bacteria None Seen /HPF (None Seen); Bilirubin Negative (Negative); Blood Large (Negative); Epithelial Cells None Seen /HPF (None Seen); Glucose, Urine Negative (Negative); Hyaline Casts NONE SEEN /LPF (0-2); Ketones Negative (Negative); Leukocyte Esterase Small (Negative); Nitrite Negative (Negative); Protein,Urine Dip 100 (Negative); RBC >100 /HPF (0-5)
[2024-04-24 08:09] LABS: ALBUMIN 4.6 g/dL (3.5-5.0); ANION GAP 12.5 MEQ/L (5-15); Calcium 9.4 mg/dL (8.4-10.2); Creatinine 1 1.16 mg/dL (0.66-1.25); EST GLOMERULAR FILTRATION RATE 75.3 ML/MIN; Potassium 4.1 mmol/L (3.5-5.1); Total Protein 7.5 g/dL (6.3-8.2)
[2024-04-24] MEDS ORDERED: Sodium Chloride 0.9% 1000 ML 1,000 ML ONE (08:13)
[2024-04-24] MEDS: Sodium Chloride 0.9% 1000 ML 1,000 ML IV STA (08:14)
--- NOTE | 2024-04-24 08:49 | XRAY ---
CLINICAL HISTORY: kidney stone COMPARISON: 08/21/2022. TECHNIQUE: Non-contrast CT of the abdomen and pelvis was performed, with the following protocol: axial images, and reconstructed coronal and sagittal images. No intravenous contrast was administered. One of the following dose reduction techniques was utilized for this exam: Automated exposure control, adjustment of the mA and/or kV according to patient size, and use of iterative reconstruction. FINDINGS: Abdomen: Kidneys and Adrenal Glands: There is an obstructing calculus measuring 7.4x 6.2 mm with a Hounsfield unit of 950 noted in left mid-ureter causing proximal hydroureter and mild hydronephrosis, there is associated Periureteric and perinephric fat stranding was also noted. There is redemonstration of nonobstructing calculus in the right kidney. Mild right sided perinephric fat stranding also appreciated. There is interval mild progression noted in number and size of nonobstructing calculi in left kidney, 1 of them at Upper pole measures 3.5 mm. The urinary bladder appears diffusely thick [place] likely secondary to suboptimal status, if indicated clinically would recommend sonographic correlation. Bilateral adrenal gland appears unremarkable . Liver: Normal in size, shape, and density. No focal lesions, cysts, or masses were identified. Gallbladder and Biliary System: Status post cholecystectomy Pancreas: Pancreatic head, body, and tail are visualized and appear normal in size and density. No pancreatic masses or calcifications were noted. Spleen: Normal in size, shape, and density. No splenic lesions or masses were identified. Pelvis: The prostate gland appears unremarkable No significant abnormality noted in the scrotum Peritoneal and Retroperitoneal Structures: No free fluid or abnormal fluid collections were identified within the abdomen or pelvis. No lymphadenopathy was noted. Bowel: The visualized bowel loops are normal in caliber and appearance. No evidence of bowel obstruction or wall thickening. Bones and Soft Tissues: Early degenerative changes are noted No fractures or abnormal masses were identified. IMPRESSION: 1. Obstructing calculus measuring 7.4x 6.2 mm noted in left mid ureter causing proximal hydroureter and hydronephrosis associated inflammatory changes also Appreciated, not seen previously. 2. Redemonstration of non-obstructing right renal calculus, Stable. 3. Interval progression was noted in the number and size of left renal Non-obstructing calculi. 4. Urinary bladder appears diffusely thick-walled likely secondary to suboptimal status still clinically warranted sonographic correlation would be helpful. 5. Status post cholecystectomy. No significant abnormality detected in the surgical bed. 6. The rest of the findings are unchanged in comparison to the previous scan. [facility] ER was called at [phone] at 7:38 AM [employer]CH[employer]IC on 04/24/2024, and Saúl (RN) was informed regarding the presence of significant medical findings in the report. Electronically Signed by: Rodrigo French MD. (04/24/2024 08:45:58 EST)
[2024-04-24 09:47] VITALS: RESP 18
[2024-04-24 10:39] VITALS: PULSE 72
[2024-04-24] MEDS ORDERED: ZOFRAN ODT 4 MG PO PRN (11:54)
[2024-04-24] MEDS ORDERED: Hydromorphone 1 mg/ml Injection ONE (11:57)
[2024-04-24] MEDS: Hydromorphone 1 mg/ml Injection IV ONE (11:58)
[2024-04-24 12:04] VITALS: BP 154/83
[2024-04-24 12:47] VITALS: O2SAT 98
== END 2024-04-24 12:38 | disposition short-term general hospital (02) ==
LOC: ED 07:25
DX: N20.0 Calculus of kidney (principal); R10.9 Unspecified abdominal pain
CPT/HCPCS: 36415; 74176; 80053; 81001; 85025; 87086; 96374; 96375; 96376; 99285; J1171; J1885; J2405; Q0162

== ENCOUNTER 2025-04-16 05:53 | Day surgery (SDC) | payer BC ==
[2025-04-16 06:26] LABS: Hematocrit 52.2 % (40.1-51.0); Hemoglobin 17.4 g/dL (13.7-17.5); Mean Corpuscular Hemoglobin 29.9 pg (25.7-32.2); Mean Corpuscular Hgb Concent. 33.3 g/dL (32.3-36.5); Platelet Count 339 x10^3/uL (163-337); Red Blood Count 5.82 x10^6/uL (4.63-6.08); White Blood Count 11.5 x10^3/uL (4.23-9.07)
[2025-04-16 06:35] VITALS: RESP 18
--- NOTE | 2025-04-16 06:48 | XRAY ---
CLINICAL HISTORY: pre op,repeat COMPARISON: 04/10/2025 TECHNIQUE: X-ray images of the chest were obtained in posteroanterior (PA) and lateral projections. FINDINGS: Pulmonary Parenchyma: Stable faint basal fine atlectatic bands Lungs are clear bilaterally. No evidence of consolidation, collapse, or focal opacities. No pulmonary nodules identified. No evidence of pleural effusion or pleural thickening. Heart and Mediastinum: Heart size and shape are normal. No mediastinal widening or masses. No hilar or mediastinal lymphadenopathy. Bony Thorax: Bony thorax appears intact without fractures or deformities. Soft Tissues: Soft tissues overlying the chest wall are unremarkable. Right hypochondrial surgical clips are likely post-cholecystectomy clips IMPRESSION: 1. No acute cardiopulmonary abnormalities identified. 2. Stable faint basal fine atlectatic bands 3. No newly developed lesions Electronically Signed by: Edgar Mccarthy MD. (04/16/2025 06:45:57 EST)
[2025-04-16] MEDS ORDERED: Epinephrine Preservative Free 1 MG/ML ONE ×2 (07:12→09:12)
[2025-04-16] MEDS ORDERED: Lactated Ringers 1,000 ML IV ONE ×2 (07:12→07:26)
[2025-04-16] MEDS ORDERED: TYLENOL EXTRA STRENGTH 500 MG ONE (07:15)
[2025-04-16] MEDS ORDERED: NEURONTIN ONE (07:16)
[2025-04-16] MEDS ORDERED: celeBREX 100 MG ONE (07:16)
[2025-04-16] MEDS ORDERED: CEFAZOLIN SODIUM ONE (07:16)
[2025-04-16] MEDS ORDERED: Decadron 4 MG ONE (07:16)
[2025-04-16] MEDS: celeBREX 100 MG PO ONE (07:21)
[2025-04-16] MEDS: TYLENOL EXTRA STRENGTH 500 MG PO ONE (07:22)
[2025-04-16] MEDS: Decadron 4 MG PO ONE (07:22)
[2025-04-16] MEDS: NEURONTIN PO ONE (07:22)
[2025-04-16] MEDS: Lactated Ringers 1,000 ML IV SCH (07:23)
[2025-04-16] MEDS ORDERED: EXPAREL 133 MG/10 ML VIAL IJ ONE (07:31)
[2025-04-16] MEDS ORDERED: Xylocaine-Mpf 2% 5 Ml Vial ONE (07:35)
[2025-04-16] MEDS ORDERED: SUBLIMAZE 100 MCG/2 ML ONE (07:35)
[2025-04-16] MEDS ORDERED: Zofran 4 MG/2 ML VIAL ONE (07:36)
[2025-04-16] MEDS ORDERED: ROCURONIUM BROMIDE IV ONE (07:40)
[2025-04-16] MEDS ORDERED: Marcaine Mpf 0.5% Vial 30 Ml ONE (07:44)
[2025-04-16] MEDS ORDERED: Versed 2 MG/2 ML Injection ONE (07:49)
[2025-04-16] MEDS ORDERED: TORAdol 30 mg Injection ONE (07:50)
[2025-04-16] MEDS ORDERED: BRIDION 200MG/2ML IV ONE (07:51)
[2025-04-16] MEDS ORDERED: PHENYLEPHRINE HCL ONE (08:19)
[2025-04-16] MEDS ORDERED: Ephedrine Sulfate 50 MG/ML ONE (08:52)
[2025-04-16] MEDS ORDERED: DEXMEDETOMIDINE 80 MCG/20ML-NS IV ONE (08:56)
[2025-04-16 10:29] VITALS: O2SAT 94
[2025-04-16 10:37] VITALS: BP 126/90; PULSE 86; TEMP 96.8
--- NOTE | 2025-04-16 13:49 | OP ---
SURGERY DATE/TIME: 04/16/2025 [id number] PREOPERATIVE DIAGNOSES: Partial-thickness tear left rotator cuff with impingement syndrome. POSTOPERATIVE DIAGNOSES: Partial-thickness tear left rotator cuff with impingement syndrome plus degenerative tear anterior labrum. PROCEDURE: Arthroscopy of the left shoulder with debridement rotator cuff, subacromial decompression, and debridement of glenoid labrum. SURGEON: Vishnu Valenzuela II, ANESTHESIA: General with block for postoperative pain control. DESCRIPTION OF PROCEDURE AND FINDINGS: The patient was identified and informed consent was obtained. The patient was taken to the operative suite where he was placed into the supine position on the operating table. The block had been administered and general anesthetic administered. The patient was then placed into the right lateral decubitus position with the left side up. Axillary roll was placed. Bony prominences were padded. The shoulder was rotated back 20 degrees and beanbag was inflated. The left upper extremity was prepped and draped in the usual sterile fashion. A standard time-out was taken. The arm was then placed into the Star abduction traction device with about 10 pounds of longitudinal traction, 20 degrees of forward flexion, and 40 degrees of lateral opening. The shoulder was then marked for bony landmarks and a standard level with an 18-gauge spinal needle. At this point, the shoulder was inspected in a systematic fashion. Humeral head and glenoid fossa had no significant degenerative chondromalacia changes. The patient did have some fraying and a degenerative-type tear of the anterior labrum, which was debrided with a shaver and contoured with wand. Biceps tendon and its anchor were noted to be intact. Superior labrum was noted to be intact. There was very mild scuffing of the posterior labrum and this was incidentally treated with the wand. Inferior glenoid pouch had no loose bodies or synovial hypertrophy. The glenohumeral ligaments were noted to be intact. The teres, infraspinatus, supraspinatus, and subscapularis were all inspected and noted to be intact from the articular side. At this point, scope was placed into the bursal space where bursoscopy was performed. The patient had a very thickened bursa which was excised for visualization. The undersurface of the acromion was denuded of soft tissue. At this point, the rotator cuff was inspected. There was some very mild scuffing of the superior surface of the supraspinatus incidentally treated with the wand. At this point, 2 bur thicknesses of acromion was removed from anterior to posterior, tapering this to a nice smooth transition. At this point, the shoulder was reinspected and no further pathology identified. The instrumentation was removed. The portal sites were closed with interrupted 4-0 nylon sutures. Adaptics, 4 x 4s, and a standard postop arthroscopy dressing applied. The patient was placed into an sling, transferred to the cart, and taken to the recovery room in satisfactory condition, having tolerated the procedure well.
== END 2025-04-16 10:45 | disposition home or self-care (01) ==
LOC: SDC 05:53
PROVIDERS: ATTEND Orthopaedic Surgery
DX: M75.112 Incomplete rotator cuff tear or rupture of left shoulder, not specified as traumatic (principal); M75.42 Impingement syndrome of left shoulder; S43.432A Superior glenoid labrum lesion of left shoulder, initial encounter